=== PATIENT | female | born 1970 | race Hispanic/Latino ===

== ENCOUNTER 2018-07-07 09:23 | Emergency (ER) | payer OTHER ==
[2018-07-07 09:40] VITALS: BMI 21.9
[2018-07-07 09:44] VITALS: BP 118/72; PULSE 68; TEMP 97.1; O2SAT 99
[2018-07-07] MEDS ORDERED: Sodium Chloride 0.9% 1,000 ML IV ONE (10:23)
[2018-07-07] MEDS ORDERED: Sodium Chloride 0.9% 1,000 ML ONE (10:36)
[2018-07-07 11:08] LABS: BASO # 0.1 K/uL (0.0-0.2); BASO % 0.5 % (0.0-2.0); MONO # 0.6 K/uL (0.0-0.8); NRBC % 0.1 % (0.0-2.0)
[2018-07-07 11:14] LABS: EOS % 0.1 % (0.0-4.0); HEMOGLOBIN 13.7 g/dL (11.0-16.0); LYMPH # 0.7 K/uL (1.0-4.3); LYMPH % 4.5 % (20.0-40.0); MEAN CELL VOLUME 73.8 fL (81.0-99.0); MEAN CORPUSCULAR HEMOGLOBIN 24.8 pg (27.0-31.0); MEAN CORPUSCULAR HGB CONC 33.6 g/dL (33.0-37.0); MEAN PLATELET VOLUME 9.9 fL (7.2-11.7); MONO % 3.8 % (0.0-10.0); NEUT % 91.1 % (50.0-75.0); RBC 5.53 Mil/uL (3.80-5.20); RED CELL DISTRIBUTION WIDTH 16.9 % (11.5-14.5); WHITE BLOOD COUNT 16.5 K/uL (4.8-10.8)
[2018-07-07 11:16] LABS: PLATELET COUNT 127 K/uL (130-400)
--- NOTE | 2018-07-07 11:19 | C.PDOC ---
History Of Present Illness 48 year old female, whose past medical history includes panic attacks, anxiety, depression, hx of alcohol abuse, presents to the ED for evaluation after having a panic attack this morning. Patient states she is currently in the process of her and has been very stressed lately. She states she had an argument with her this morning and is unable to cope right now. At present time, patient complains of some chest tightness and palpitations. She denies drug/alcohol abuse or suicidal/homicidal ideation at this time. Time Seen by Provider: 07/07/18 09:35 Chief Complaint (Nursing): Anxiety History Per: Patient History/Exam Limitations: no limitations Onset/Duration Of Symptoms: Hrs Current Symptoms Are (Timing): Still Present Suicide/Self Injury Attempted (Context): None Modifying Factor(s): None Associated Symptoms: denies: Suicidal Thoughts, Suicidal Plan Involuntary Hold By: None Recent travel outside of the [place]: No Additional History Per: Patient Past Medical History Reviewed: Historical Data, Nursing Documentation, Vital Signs Vital Signs: Last Vital Signs Temp 97.1 F L 07/07/18 09:40 Pulse 68 07/07/18 09:40 Resp 18 07/07/18 09:40 BP 118/72 07/07/18 09:40 Pulse Ox 99 07/07/18 09:40 - Medical History PMH: Anxiety, Depression Surgical History: Cholecystectomy Family History: States: Unknown Family Hx - Social History Hx Alcohol Use: No Hx Substance Use: No - Immunization History Hx Tetanus Toxoid Vaccination: Yes Hx Influenza Vaccination: Yes Hx Pneumococcal Vaccination: No Review Of Systems Cardiovascular: Positive for: Palpitations, Other (chest tightness ) Psych: Positive for: Other (panic attack ). Negative for: Suicidal ideation Physical Exam - Physical Exam Appears: Non-toxic, No Acute Distress Skin: Normal Color, Warm, Dry Head: Normacephalic Eye(s): bilateral: PERRL Nose: No Flaring, No Discharge Oral Mucosa: Moist Tongue: Normal Appearing Lips: Normal Appearing Throat: No Erythema, No Drooling Neck: Trachea Midline, Supple Cardiovascular: Rhythm Regular, No Murmur, No JVD Respiratory: No Decreased Breath Sounds, No Accessory Muscle Use, No Rales, No Rhonchi, No Stridor, No Wheezing Gastrointestinal/Abdominal: Soft, No Tenderness, No Distention, No Guarding Back: No CVA Tenderness Extremity: Normal ROM, Capillary Refill (less than 2 seconds ), No Swelling Neurological/Psych: Oriented x3, Normal Speech, Normal Cognition ED Course And Treatment - Laboratory Results Result Diagrams: 07/07/18 11:00 07/07/18 11:00 ECG: Interpreted By Me, Viewed By Me ECG Rhythm: Sinus Rhythm Interpretation Of ECG: SR@67/min, NAD, no acute t wave or ST-T changes O2 Sat by Pulse Oximetry: 99 (on RA) Pulse Ox Interpretation: Normal Progress Note: Bloodwork, urinalysis, and EKG ordered and reviewed. Ativan IVP, Zofran IVP and IV Fluids given. Pt was OBS in ED for 2 hrs and remained stable. On re-eval, pt is resting comofrtably, not in any apparent distress. Afebrile, hemodynamicaly stable. Non-toxic. ENT: No acute findings. neck: SUpple, (-) meningeal sign. Lungs: CTA B/L, BS equal B/L. CVS: (+)S1S2, reg. ABd: benign, (-) guarding, (-) rebound. Back: (-) CVA tenderness. Blood work review, mild leukocutosis noted. UA (+) blood. Pt admites, under [facility] [employer] care now due to DUB, acute leukocytosis might relaite to DUB. Case discussed with [facility] and consult ordered. Pt was seen by TIFFANY Maharaj, case discussed with and pt was psych cleared, stable for discharge with outpt f/u on 07/10/18 at 6 PM. results review and discussed with pt. Pt has clinical findings c/w panic disorder . pt advised to F/U with as scheduled. ref. to F/u with Ped in 1-2 days for re-eavl. return to ED if any worsening or new changes. Disposition Counseled Patient/Family Regarding: Studies Performed, Diagnosis, Need For Followup, Rx Given - Disposition Referrals: Shanelle Montes MD [Staff Provider] - Disposition: HOME/ ROUTINE Disposition Time: 12:02 Condition: STABLE Additional Instructions: FOLLOW UP WITH PSYCHIATRIST ON 07/10/18 AT 6PM FOR FURTHER EVALUATION AND TREATMENT NEED RETURN TO ED IF ANY WORSENING OR NEW CHANGES. Prescriptions: Alprazolam [Xanax] 0.25 mg PO HS #7 tablet Instructions: Panic Disorder Forms: [facility] (Portuguese), Work Excuse - Clinical Impression Clinical Impression: Panic disorder - PA / COLLABORATIVE PHYSICIAN / Resident Statement MD/DO has reviewed & agrees with the documentation as recorded. - Scribe Statement The provider has reviewed the documentation as recorded by the Scribe (Jennifer Hall) All medical record entries made by the Scribe were at my direction and personally dictated by me. I have reviewed the chart and agree that the record accurately reflects my personal performance of the history, physical exam, medical decision making, and the department course for this patient. I have also personally directed, reviewed, and agree with the discharge instructions and disposition.
[2018-07-07 11:20] LABS: ALB/GLOB RATIO 1.7 (1.0-2.1); ALBUMIN 4.8 g/dL (3.5-5.0); ALT/SGPT 37 U/L (9-52); AST/SGOT 66 U/L (14-36); BLOOD UREA NITROGEN 13 mg/dL (7-17); CALCIUM 10.2 mg/dl (8.6-10.4); GFR NON-AFRICAN AMERICAN > 60
[2018-07-07 11:33] LABS: HCG,QUALITATIVE URINE NEGATIVE (NEGATIVE)
[2018-07-07 11:46] LABS: SQUAMOUS EPITHIAL 4 /hpf (0-5); URINE BILIRUBIN NEGATIVE (NEGATIVE); URINE BLOOD 3+ (NEGATIVE); URINE CLARITY Hazy (Clear); URINE COLOR Red (YELLOW); URINE GLUCOSE (UA) NORMAL (Normal); URINE LEUKOCYTE ESTERASE 1+ Leu/uL (Negative); URINE PROTEIN 2+ mg/dL (NEGATIVE); URINE UROBILINOGEN NORMAL mg/dL (0.2-1.0)
[2018-07-07 11:59] LABS: BARBITURATES, UR NEGATIVE (NEGATIVE); BENZODIAZEPINES, UR NEGATIVE (NEGATIVE); OPIATES, UR NEGATIVE (NEGATIVE); PHENCYCLIDINE, UR NEGATIVE (NEGATIVE)
[2018-07-07 12:20] LABS: LYMPHOCYTE 3 % (20-40); MONOCYTE 4 % (0-10); NEUTROPHIL 93 % (50-75); TOTAL CELLS COUNTED 100
[2018-07-07 12:21] LABS: PLATELET ESTIMATE NORMAL (NORMAL)
[2018-07-07 13:01] VITALS: RESP 20
--- NOTE | 2018-07-09 06:41 | CARD ---
APPROVED REPORT Date of service: 07/07/2018 EKG Measurement Heart [id number] <Conclusion> Normal sinus rhythm Normal ECG
== END 2018-07-07 13:00 | disposition home or self-care (01) ==
LOC: C.ER 09:23
DX: F41.0 Panic disorder [episodic paroxysmal anxiety] (principal)
CPT/HCPCS: 80053; 80320; 80324; 80345; 80346; 80349; 80353; 80358; 80361; 81001; 83735; 83992; 84100; 84703; 85025; 93005; 96361; 96374; 96375; 99285; J2060; J2405; J7030